=== PATIENT | female | born 1985 | race Caucasian/White ===

== ENCOUNTER 2023-07-26 09:43 | Inpatient (IN) | payer OTHER ==
[2023-07-26 10:17] VITALS: BMI 24.0
[2023-07-26] MEDS ORDERED: BISMUTH SUBSALICYLATE 262 MG/15 ML BTL PO PRN (10:22)
[2023-07-26] MEDS ORDERED: POLYETHYLENE GLYCOL (HEALTHYLAX) 3350 17 GM PACKET PO PRN (10:22)
[2023-07-26] MEDS ORDERED: ONDANSETRON *ODT* 4 MG TABLET SL PRN (10:22)
[2023-07-26] MEDS ORDERED: MAGNESIUM HYDROX 2400MG/30ML ORAL SUSPENSION 30 ML CUP PO PRN (10:22)
[2023-07-26] MEDS ORDERED: MAG HYDROX/AL HYDROX/SIMETH 30 ML UNIT-DOSE CUP PO PRN (10:22)
[2023-07-26] MEDS ORDERED: LOPERAMIDE HCL 2 MG CAPSULE PO PRN (10:22)
[2023-07-26] MEDS ORDERED: BENZOCAINE/MENTHOL (CHLORASEPTIC ) LOZENGE MM PRN (10:22)
[2023-07-26] MEDS ORDERED: guaiFENesin 600 MG TABLET.ER (FP) PO PRN (10:22)
[2023-07-26] MEDS ORDERED: BENZONATATE 200 MG CAPSULE PO PRN (10:22)
[2023-07-26] MEDS ORDERED: chlordiazePOXIDE HCL 25 MG CAPSULE PO PRN (10:22)
[2023-07-26] MEDS ORDERED: DICYCLOMINE HCL 10 MG CAPSULE PO PRN (10:22)
[2023-07-26] MEDS ORDERED: chlordiazePOXIDE HCL 25 MG CAPSULE ONE (12:15)
[2023-07-26] MEDS ORDERED: levETIRAcetam 500 MG TABLET (FP) PO ONE (12:15)
[2023-07-26] MEDS: levETIRAcetam 500 MG TABLET (FP) PO SCH (12:18)
[2023-07-26] MEDS: chlordiazePOXIDE HCL 25 MG CAPSULE PO SCH (12:19)
[2023-07-26] MEDS: ASPIRIN COATED 81 MG TABLET.EC PO SCH (12:21)
[2023-07-26] MEDS: hydrOXYzine PAMOATE 25 MG CAPSULE (FP) PO PRN (14:45)
[2023-07-26] MEDS: METHOCARBAMOL 500 MG TABLET PO PRN (14:46)
[2023-07-26] MEDS: ASPIRIN COATED 81 MG TABLET.EC PO ONE (14:46)
[2023-07-26] MEDS: BUPRENORPHINE/NALOXONE 8 MG/2 MG FILM PACKET SL SCH (17:37)
[2023-07-26] MEDS ORDERED: PATIENT'S OWN MEDICATION (NON-FORMULARY) (Buprenorphine/Naloxone 1 EACH Film) SL SCH (22:00)
[2023-07-26] MEDS: THIAMINE 100 MG TABLET PO SCH (22:28)
[2023-07-26] MEDS: MELATONIN 5 MG TABLETS PO SCH (22:30)
[2023-07-27] MEDS: PRENATAL VITAMINS W/ FOLIC ACID TABLET (FP) PO SCH (10:14)
[2023-07-27 11:48] LABS: HEMATOCRIT 35.6 % (32.4-45.2); HEMOGLOBIN 11.9 GM/dL (10.7-15.3); MCH 28.6 pg (25.7-33.7); MCHC 33.4 g/dl (32.0-36.0); MEAN CELL VOLUME 85.7 fl (80-96); MEAN PLT VOLUME 7.7 fl (7.5-11.1); PLATELET COUNT 265 10^3/uL (134-434); RBC 4.16 M/mm3 (3.60-5.2); RDW 21.4 % (11.6-15.6); WHITE BLOOD COUNT 4.3 K/mm3 (4.0-10.0)
[2023-07-27 11:51] LABS: POTASSIUM 3.8 mmol/L (3.5-5.1)
[2023-07-27 11:53] LABS: CALCIUM 8.7 mg/dL (8.5-10.1)
[2023-07-27 11:54] LABS: BLOOD UREA NITROGEN 10.8 mg/dL (7-18)
[2023-07-27 11:57] LABS: CREATININE 0.6 mg/dL (0.55-1.3)
[2023-07-27 11:58] LABS: BILIRUBIN,TOTAL 0.7 mg/dL (0.2-1)
[2023-07-27] MEDS: SUVOREXANT 5 MG TABLET PO PRN (22:07)
[2023-07-28] MEDS: chlordiazePOXIDE HCL 25 MG CAPSULE PO SCH (05:30)
[2023-07-28] MEDS: DULoxetine HCL 20 MG CAPSULE.DR PO SCH (10:06)
[2023-07-28] MEDS: ACETAMINOPHEN 325 MG TABLET (FP) PO PRN (10:07)
[2023-07-29] MEDS ORDERED: chlordiazePOXIDE HCL 10 MG CAPSULE PO PRN
[2023-07-29] MEDS: chlordiazePOXIDE HCL 10 MG CAPSULE PO SCH (05:52)
[2023-07-30] MEDS: chlordiazePOXIDE HCL 10 MG CAPSULE PO SCH (05:32)
[2023-07-30] MEDS: METHOCARBAMOL 500 MG TABLET PO PRN (11:48)
[2023-07-31] MEDS: chlordiazePOXIDE HCL 10 MG CAPSULE PO ONE (05:25)
[2023-07-31 08:59] VITALS: BP 116/74; PULSE 85; RESP 19; TEMP 97.4
== END 2023-07-31 10:02 | disposition home or self-care (01) | DRG 773 ==
LOC: YASAS 09:43 → Y3N 13:04
PROVIDERS: ADMIT Allergy & Immunology; ATTEND Surgery
PROC: HZ2ZZZZ Detoxification Services for Substance Abuse Treatment (ICD-10-PCS; principal; 2023-07-26)
DX: F10.230 Alcohol dependence with withdrawal, uncomplicated (principal); F11.20 Opioid dependence, uncomplicated; F43.10 Post-traumatic stress disorder, unspecified; G47.00 Insomnia, unspecified; Z91.410 Personal history of adult physical and sexual abuse; Z63.0 Problems in relationship with spouse or partner; Z63.79 Other stressful life events affecting family and household; Z86.69 Personal history of other diseases of the nervous system and sense organs; Z98.84 Bariatric surgery status
CPT/HCPCS: 36415; 80053; 80305; 80307; 81025; 85027; 86780; 93005; 93010